=== PATIENT | female | born 1970 | race Caucasian/White ===

== ENCOUNTER → 2018-04-08 | Outpatient (CLI) | payer BC | END | disposition home or self-care (01) | LOC: KCIC US 10:22 | DX: M67.432 Ganglion, left wrist (principal); M54.2 Cervicalgia; M25.532 Pain in left wrist | CPT/HCPCS: 72050; 73110; 76881 ==

== ENCOUNTER → 2018-05-24 | Outpatient (CLI) | payer BC ==
--- NOTE | 2018-05-24 12:29 | KCIC ---
Bilateral digital screening mammograms with 3-D tomosynthesis: Reason for examination: Routine screening. Comparison is made to previous studies dated 10/27/2014 and 10/01/2012. Bilateral mammograms in CC and oblique projections were obtained with 2-D imaging and 3-D tomosynthesis imaging on a Siemens Inspiration unit and reviewed on the workstation. Interpretation was made with the benefit of CAD. The skin and nipples show no abnormalities. No abnormal axillary lymph nodes are seen. The breast parenchyma is extremely dense. (Breast density: Category D.) There appears to be nodular density in the inferior left breast. Further evaluation with ultrasound is recommended. There are no other dominant masses, suspicious calcifications or architectural distortion. Impression: Nodular density seen in the inferior left breast. Recommend further evaluation with ultrasound. Your patient's mammogram demonstrates that she has dense breast tissue (breast density category C or D), which could hide abnormalities, and if she has other risk factors for breast cancer that have been identified, she might benefit from supplemental screening tests that may be suggested by you as her ordering physician. Dense breast tissue, in and of itself, is a relatively common condition. Therefore, this information is not provided to cause undue concern, but rather to raise your awareness and to promote discussion with your patient regarding the presence of other risk factors, in addition to dense breast tissue. Your patient's mammography results will be sent to her. BI-RAD Category 0: Incomplete. Needs additional imaging evaluation. "Our facility is accredited by the [employer] Mammography [employer]." This patient's information has been entered into a reminder system for the patient to be notified with the results of her examination and a target date for the next mammogram. Electronically signed by: Carla Chung MD (05/24/2018 12:25 PM) [id number]
== END | disposition home or self-care (01) ==
LOC: KCIC MAMMO 10:06
PROVIDERS: ATTEND Nurse Practitioner Family
DX: Z12.31 Encounter for screening mammogram for malignant neoplasm of breast (principal)
CPT/HCPCS: 77063; 77067

== ENCOUNTER → 2018-05-31 | Outpatient (CLI) | payer BC ==
--- NOTE | 2018-05-31 16:59 | KCIC ---
Left breast ultrasound: Reason for examination: Nodular density on screening mammogram. Comparison is made to mammographic exam dated 05/24/2018. Left whole breast ultrasound including evaluation of all 4 quadrants and the retroareolar and axillary regions of the left breast was performed. There is a 9.4 mm cyst at the 2:30 position 5 cm from the nipple. There is a 1.1 cm hypoechoic circumscribed lesion in parallel orientation at the 3:00 position 3.5 cm from the nipple consistent with a fibroadenoma. There is a 7.5 mm hypoechoic circumscribed lesion in parallel orientation at the 7:00 position 3 cm from the nipple consistent with fibroadenoma. There is a 1.1 cm hypoechoic lesion at the 9:00 position 4 cm from the nipple which probably represents a complicated cyst with some posterior acoustic enhancement. There is a fibrocystic lesion at the 9:00 position 3.5 cm from the nipple measuring 6.2 mm in size. In the 9:30 position 3 cm from the nipple, there is a 1.4 cm hypoechoic circumscribed lesion in parallel orientation shortness of posterior acoustic enhancement consistent with fibroadenoma. In the 8:00 position 4.5 cm from the nipple, there is a 7.5 mm septated cyst. No other cystic or solid lesions are seen. No abnormal appearing lymph nodes are seen in the axilla. IMPRESSION: Multiple small cystic, fibrocystic and fibroadenomatous type lesions seen. The 1.4 cm nodule at the 9:30 position probably corresponds to the area of mammographic concern and is consistent with a fibroadenoma. Recommend reevaluation with ultrasound in 6 months. BI-RADS Category 3: Probably Benign. "Our facility is accredited by the [employer] Mammography Program." This patient's information has been entered into a reminder system for the patient to be notified with the results of her examination and a target date for the next mammogram. Electronically signed by: Carla Chung MD (05/31/2018 4:56 PM) [id number]
== END | disposition home or self-care (01) ==
LOC: KCIC US 09:26
PROVIDERS: ATTEND Nurse Practitioner Family
DX: N63.22 Unspecified lump in the left breast, upper inner quadrant (principal)
CPT/HCPCS: 76641

== ENCOUNTER 2021-08-06 01:54 | Emergency (ER) | payer BC ==
[~2021-08-06] VITALS: Ht 175.3 cm; Wt 79.5 kg
[2021-08-06 02:05] VITALS: BP 154/95
[2021-08-06 02:17] LABS: BILIRUBIN,URINE NEGATIVE (NEG); CLARITY,URINE CLEAR; COLOR,URINE YELLOW; NITRITE,URINE NEGATIVE (NEG); PROTEIN,URINE NEGATIVE (NEG-TRACE); UROBILINOGEN,URINE 0.2 mg/dL (0.2 mg/dL)
[2021-08-06 02:22] LABS: BACTERIA,URINE FEW /HPF (0-FEW); RBC,URINE 0 /HPF (0-2)
[2021-08-06] MEDS ORDERED: CYCL10TA19 PO (02:41)
[2021-08-06] MEDS ORDERED: OXYC-325 PO (02:41)
--- NOTE | 2021-08-06 02:46 | PHYS DOC ---
Past Medical History Past Surgical History: Other Additional Past Surgical Histo: OVARIES REMOVED, HERNIA REPAIR General Adult EDM: Chief Complaint: FLANK PAIN HPI: HPI: Patient is a 51 year old female presents with the chief complaint of left back pain. Onset thursday progressively worse and more intense. Pain constant over the last few hours. She denies any injuries. Review of Systems: Review of Systems: Constitutional: Denies fever or chills. [] Eyes: Denies change in visual acuity. [] HENT: Denies nasal congestion or sore throat. [] Respiratory: Denies cough or shortness of breath. [] Cardiovascular: Denies chest pain or edema. [] GI: Denies abdominal pain, nausea, vomiting, bloody stools or diarrhea. [] : Denies dysuria. [] Musculoskeletal: positive back pain Integument: Denies rash. [] Neurologic: Denies headache, focal weakness or sensory changes. [] Endocrine: Denies polyuria or polydipsia. [] Lymphatic: Denies swollen glands. [] Psychiatric: Denies depression or anxiety. [] Heart Score: C/O Chest Pain: N/A Risk Factors: Risk Factors: DM, Current or recent (<one month) smoker, HTN, HLP, family history of CAD, obesity. Risk Scores: Score 0 - 3: 2.5% MACE over next 6 weeks - Discharge Home Score 4 - 6: 20.3% MACE over next 6 weeks - Admit for Clinical Observation Score 7 - 10: 72.7% MACE over next 6 weeks - Early Invasive Strategies Current Medications: Current Medications Medications (Trade) Dose Ordered Sig/[facility] Start Time Stop Time Status Last Admin Dose Admin Oxycodone/ Acetaminophen (Percocet 5/325) 1 tab 1X ONCE 08/06/21 02:30 08/06/21 02:31 DC Allergies: Allergies: Allergies Coded Allergies Type Severity Reaction Last Updated Verified ofloxacin Allergy Severe 08/06/21 Yes codeine Allergy Intermediate 08/06/21 Yes Physical Exam: PE: Constitutional: Well developed, well nourished, no acute distress, non-toxic appearance. [] HENT: Normocephalic, atraumatic, bilateral external ears normal, oropharynx moist, no oral exudates, nose normal. [] Eyes: PERRLA, EOMI, conjunctiva normal, no discharge. [] Neck: Normal range of motion, no tenderness, supple, no stridor. [] Cardiovascular:Heart rate regular rhythm, no murmur [] Lungs & Thorax: Bilateral breath sounds clear to auscultation [] Abdomen: Bowel sounds normal, soft, no tenderness, no masses, no pulsatile masses. [] Skin: Warm, dry, no erythema, no rash. [] Back: , no CVA tenderness. [] tenderness to palpation-- Pain left mid axillary line 4-5th costal Extremities: No tenderness, no cyanosis, no clubbing, ROM intact, no edema. [] Neurologic: Alert and oriented X 3, normal motor function, normal sensory function, no focal deficits noted. [] Psychologic: Affect normal, judgement normal, mood normal. [] Current Patient Data: Labs: Laboratory Tests Test 08/06/21 02:01 08/06/21 02:06 Urine Collection Type Unknown Urine Color Yellow Urine Clarity Clear Urine pH 6.0 (<5.0-8.0) Urine Specific [place] 1.015 (1.000-1.030) Urine Protein Negative mg/dL (NEG-TRACE) Urine Glucose (UA) Negative mg/dL (NEG) Urine Ketones (Stick) Negative mg/dL (NEG) Urine Blood Negative (NEG) Urine Nitrite Negative (NEG) Urine Bilirubin Negative (NEG) Urine Urobilinogen Dipstick 0.2 mg/dL (0.2 mg/dL) Urine Leukocyte Esterase Small (NEG) Urine RBC 0 /HPF (0-2) Urine WBC 1-4 /HPF (0-4) Urine Squamous Epithelial Cells Many /LPF Urine Bacteria Few /HPF (0-FEW) Urine Mucus Mod /LPF POC Urine HCG, Qualitative Hcg negative (Negative) Vital Signs: Vital Signs Date Time Temp Pulse Resp B/P (MAP) Pulse Ox O2 Delivery O2 Flow Rate FiO2 08/06/21 02:05 98.6 78 18 154/95 (114) 98.6 EKG: EKG: [] Radiology/Procedures: Radiology/Procedures: [] Impression: Xray- ribs no acute fracture no pneumothorax Course & Med Decision Making: Course & Med Decision Making Pertinent Labs and Imaging studies reviewed. (See chart for details) []Treated with percocet. Rx percocet and flexeril Dragon Disclaimer: Dragon Disclaimer: This electronic medical record was generated, in whole or in part, using a voice recognition dictation system. Departure Departure Impression: Primary Impression: Back pain Disposition: HOME / SELF CARE / HOMELESS Condition: STABLE Referrals: MORALES WARD APRN (PCP) Patient Instructions: Back Pain, Adult Scripts Cyclobenzaprine Hcl (CYCLOBENZAPRINE HCL) 10 Mg Tablet 1 TAB PO QHS, #20 TAB Prov: MIKE COWAN I DO 08/06/21 Oxycodone HCl/Acetaminophen (Percocet 5-325 mg Tablet) 1 Each Tablet 1 TAB PO QIDPRN PRN for PAIN MDD 4 Tablet(s) for 5 Days, #20 TAB 0 Refills Prov: MIKE COWAN I DO 08/06/21 MIKE COWAN I DO Aug 06, 2021 02:45
[2021-08-06] MEDS: oxyCODONE/APAP 5/325 1 TAB TABLET PO ONE (02:47)
--- NOTE | 2021-08-06 04:58 | RAD ---
EXAM: XR RIBS MIN 3 VIEWS LT W/PA CHEST 08/06/2021 2:30 AM CLINICAL INDICATION: Left-sided rib pain COMPARISON: None TECHNIQUE: PA view of the chest and AP and oblique views of the left ribs FINDINGS: No displaced rib fracture. The heart and mediastinum are normal. Lungs are well-expanded a nd clear. No pleural effusion or pneumothorax. IMPRESSION: No displaced left rib fracture or acute cardiopulmonary abnormality. Electronically signed by: Arielle Carter MD (08/06/2021 4:56 AM) [facility]
== END 2021-08-06 02:54 | disposition home or self-care (01) ==
LOC: ER 01:54
DX: M54.89 Other dorsalgia (principal); R07.81 Pleurodynia; Z88.1 Allergy status to other antibiotic agents; Z88.5 Allergy status to narcotic agent
CPT/HCPCS: 71101; 81001; 81025; 87086; 99284